=== PATIENT | male | born 2000 | race Caucasian/White ===

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

== ENCOUNTER 2022-08-06 16:12 | Emergency (ER) | payer OTHER, MEDICAID, SELFPAY ==
[2022-08-06 16:55] VITALS: BP 132/88; PULSE 54; RESP 20; TEMP 36.6; O2SAT 97; BMI 22.3
== END 2022-08-06 17:28 | disposition left against medical advice (07) ==
PROVIDERS: Emergency Provider Emergency Medicine
CPT/HCPCS: 99281

== ENCOUNTER 2023-01-31 18:44 | Emergency (ER) | payer OTHER, MEDICAID, SELFPAY ==
[2023-01-31] VITALS (8 sets, daily range): BP systolic 138–154; BP diastolic 61–86; PULSE 57–69; RESP 16; TEMP 36.7; O2SAT 92–100; BMI 22.3
[2023-01-31] MEDS: ONDANSETRON 4 MG/2 ML INJ IV (19:14)
[2023-01-31 19:20] LABS: Add Manual Diff / Slide Review NO; Basophils Absolute Auto 0 /uL (0-100); Basophils Percent Auto 0.2 % (0-2); Eosinophils Absolute Auto 0 /uL (0-450); Eosinophils Percent Auto 0.3 % (2-4); Hematocrit 45.5 % (41-53); Hemoglobin 15.6 g/dL (13.5-17.5); Lymphocytes Absolute Auto 400 /uL (1100-4500); Lymphocytes Percent Auto 3.3 % (25-40); Mean Corpuscular HGB Conc 34.4 % (30-36); Mean Corpuscular Hemoglobin 29.6 PG (26-34); Mean Corpuscular Volume 86.1 fL (80-100); Monocytes Absolute Auto 200 /uL (0-900); Neutrophils Absolute Auto 11400 /uL (1500-7000); Neutrophils Percent Auto 94.2 % (50-75); Platelet Count 295 X10^3/uL (150-400); Red Blood Cell Count 5.28 X10^6/uL (4.5-5.9); White Blood Cell Count 12.1 X10^3/uL (4.5-11.0)
[2023-01-31] MEDS: SODIUM CHLORIDE 0.9% 1,000 ML 1000 ML IV (19:22)
[2023-01-31 19:30] LABS: Albumin 5.4 g/dL (3.5-5.0); Albumin Globulin Ratio 1.4 (1.0-2.8); Alkaline Phosphatase 69 U/L (38-126); Aspartate Aminotransferase 46 IU/L (17-59); BUN Creatinine Ratio 20.5 (6-22); Blood Urea Nitrogen 16 mg/dL (9-20); Calcium 10.5 mg/dL (8.4-10.2); Carbon Dioxide 24 mmol/L (22-32); Chloride 99 mmol/L (98-107); Estimated Glomerular Filt Rate > 60 mL/min (>60); Globulin 3.8 g/dL (1.7-4.1); Glucose 163 mg/dL (70-100); HEMOLYSIS < 15 (0-50); Lipase 28 U/L (23-300); Potassium 3.5 mmol/L (3.4-5.1); Sodium 141 mmol/L (137-145); Total Protein 9.2 g/dL (6.3-8.2)
[2023-01-31 19:37] LABS: Alanine Aminotransferase 50 IU/L (<50)
--- NOTE | 2023-01-31 19:56 | ED.ABDPAIN ---
HPI - Abdominal Pain General Chief Complaint: Abdominal Pain Stated Complaint: stomach pain/V Time Seen by Provider: 01/31/23 18:56 Source: patient Mode of arrival: Ambulatory History of Present Illness HPI narrative: Patient is a healthy 22-year-old male who presents today with nausea vomiting today. He says he is woke up around 5:00 a.m. and has been vomiting multiple times throughout the day. He is got some epigastric pain other abdominal cramping but no other localized pain. No fever or chills. He denies any diarrhea. He has been given fluids and Zofran and is overall feeling much better. He was seen evaluated here previously for something similar required multiple medications. He does use marijuana regularly. Related Data Previous Rx's Medication Instructions Recorded ondansetron 4 mg disintegrating 4 mg PO Q8H PRN nausea and 01/31/23 tablet vomiting #10 tabs Allergies Allergy/AdvReac Type Severity Reaction Status Date / Time No Known Drug Allergies Allergy Verified 08/06/22 16:59 Review of Systems Review of Systems ROS Unobtainable: All systems reviewed & are unremarkable except as noted in HPI and below Patient History Medical History Acid reflux Social History Smoking Status: Current every day smoker Smoking Status: Current every day smoker tobacco type: vaping Substance Use Type: marijuana Exam Initial Vital Signs Initial Vital Signs: Vital Signs Temperature 98.0 F 01/31/23 18:50 Pulse Rate 58 L 01/31/23 18:50 Respiratory Rate 16 01/31/23 18:50 Blood Pressure 154/86 H 01/31/23 18:50 Pulse Oximetry 100 01/31/23 18:50 Oxygen Delivery Method Room Air 01/31/23 18:50 GENERAL: Thin well-appearing 22-year-old male HEENT: Head atraumatic,EOMI, pupils reactive, face symmetric, moist mucous membranes CARDIOVASCULAR: Regular rate and rhythm without murmurs, rubs or gallops. RESPIRATORY: Breath sounds equal bilaterally, no wheezes rales or rhonchi. ABDOMEN: Soft, epigastric pain negative Taylor's sign no guarding no rebound abdomen soft no lower abdominal pain EXTREMITIES: Normal range of motion, no clubbing or edema. Neurovascularly intact NEUROLOGICAL: Alert and oriented x4. SKIN: Warm, dry, no laceration, no petechiae, no rashes or lesions. Course Orders Ordered: ED Orders 01/31/23 19:10 Complete Blood Count AUTO DIFF Stat Comprehensive Metabolic Panel Stat Lipase Stat Discontinued Medications Sodium Chloride (Normal Saline 0.9%) 1,000 mls @ 1,000 mls/hr IV BOLUS ONE Stop: 01/31/23 20:17 Last Infusion: 01/31/23 20:21 Dose: 0 mls/hr Documented By: Admin: 01/31/23 19:22 Dose: 1,000 mls/hr Documented By: CATY Ketorolac Tromethamine (Ketorolac 30 Mg/Ml Vial) 15 mg IV NOW ONE Stop: 01/31/23 20:12 Last Admin: 01/31/23 20:26 Dose: 15 mg Documented By: CATY Ondansetron HCl (Ondansetron 4 Mg Odt) 4 mg PO NOW PRN PRN Reason: Nausea And Vomiting Ondansetron HCl (Ondansetron 4 Mg/2 Ml Inj) 4 mg IV NOW PRN PRN Reason: Nausea And Vomiting Last Admin: 01/31/23 19:14 Dose: 4 mg Documented By: CATY Ondansetron HCl (Ondansetron 4 Mg Odt Prepack) 1 bottle MISC SEEINSTR ONE Stop: 01/31/23 20:09 Last Admin: 01/31/23 20:27 Dose: 1 bottle Documented By: CATY Pantoprazole Sodium (Pantoprazole 40 Mg Vial) 40 mg IV NOW ONE Stop: 01/31/23 20:12 Last Admin: 01/31/23 20:26 Dose: 40 mg Documented By: CATY Vital Signs Vital signs: Vital Signs - 8 hr 01/31/23 18:50 01/31/23 18:59 01/31/23 18:59 Temperature 98.0 F Pulse Rate 58 L 57 L Respiratory Rate 16 Blood Pressure 154/86 H 154/86 H Pulse Oximetry 100 100 Oxygen Delivery Method Room Air Room Air 01/31/23 19:00 01/31/23 19:30 01/31/23 20:00 Temperature Pulse Rate 62 59 L 58 L Respiratory Rate Blood Pressure Pulse Oximetry 100 92 98 Oxygen Delivery Method Room Air Room Air 01/31/23 20:30 01/31/23 20:32 01/31/23 20:33 Temperature Pulse Rate 65 69 Respiratory Rate Blood Pressure 138/61 Pulse Oximetry 100 100 Oxygen Delivery Method Room Air MDM - Abdominal Pain Lab Data 01/31/23 19:10 01/31/23 19:10 Labs: Lab Results 01/31/23 01/31/23 Range/Units 19:10 19:10 WBC 12.1 H (4.5-11.0) X10^3/uL RBC 5.28 (4.5-5.9) X10^6/uL Hgb 15.6 (13.5-17.5) g/dL Hct 45.5 (41-53) % MCV 86.1 (80-100) fL MCH 29.6 (26-34) PG MCHC 34.4 (30-36) % RDW 13.0 (11.6-14.8) % Plt Count 295 (150-400) X10^3/uL Neut % (Auto) 94.2 H (50-75) % Lymph % (Auto) 3.3 L (25-40) % [place] % (Auto) 2.0 L (3-14) % Eos % (Auto) 0.3 L (2-4) % Baso % (Auto) 0.2 (0-2) % Neut # (Auto) 87961 H (2920-8278) /uL Lymph # (Auto) 400 L (2838-2681) /uL Spencer # (Auto) 200 (0-900) /uL Eos # (Auto) 0 (0-450) /uL Baso # (Auto) 0 (0-100) /uL Sodium 141 (137-145) mmol/L Potassium 3.5 (3.4-5.1) mmol/L Chloride 99 (98-107) mmol/L Carbon Dioxide 24 (22-32) mmol/L BUN 16 (9-20) mg/dL Creatinine 0.78 (0.66-1.25) mg/dL Estimated GFR > 60 (>60) mL/min BUN/Creatinine Ratio 20.5 (6-22) Glucose 163 H (70-100) mg/dL Calcium 10.5 H (8.4-10.2) mg/dL Total Bilirubin 1.0 (0.2-1.3) mg/dL AST 46 (17-59) IU/L ALT 50 H (<50) IU/L Alkaline Phosphatase 69 (38-126) U/L Total Protein 9.2 H (6.3-8.2) g/dL Albumin 5.4 H (3.5-5.0) g/dL Globulin 3.8 (1.7-4.1) g/dL Albumin/Globulin Ratio 1.4 (1.0-2.8) Lipase 28 (23-300) U/L MDM Narrative Medical decision making narrative: Patient is a 22-year-old healthy male who presents today with nausea vomiting ongoing for 14 hours. His vitals are stable without hypotension or tachycardia he is afebrile. Blood work has been reviewed by me has mild leukocytosis of 12.1 no evidence of electrolyte abnormality or KERRY. Overall feeling much better with fluids and Zofran. Abdomen is reexamined it is soft and nontender. At this time no indication for imaging. We discussed oral rehydration technique and when to return. He is previously been here for similar episodes however this time seems a little bit better than previous. This may or may not be related to marijuana use and cyclic vomiting. Discharge Plan Departure Patient Disposition: Home Clinical Impression: Vomiting Instructions: DI for Vomiting -- Adult Activity Restrictions/Additional Instructions: *You have been diagnosed with vomiting *What to do: Increase fluids as tolerated Pedialyte Gatorade substances encourage small amounts frequently *Continue to take medications as directed Zofran 4 mg every 8 hours if needed for nausea or vomiting--> [facility] *Follow up with your primary care provider in 2-3 days or call [phone] *Return to ER if you should have persistent vomiting increasing pain or any new, worsening or concerning symptoms Prescriptions: New ondansetron 4 mg tablet,disintegrating 4 mg PO Q8H PRN (Reason: nausea and vomiting) Qty: 10 0RF Stand Alone Forms: Patient Portal/API
[2023-01-31] MEDS: KETOROLAC 30 MG/ML VIAL 15 MG IV (20:26)
[2023-01-31] MEDS: PANTOPRAZOLE 40 MG VIAL IV (20:26)
[2023-01-31] MEDS: ONDANSETRON 4 MG ODT PREPACK 1 BOTTLE MISC (20:27)
== END 2023-01-31 20:42 | disposition home or self-care (01) ==
PROVIDERS: Emergency Provider Emergency Medicine
DX: R11.2 Nausea with vomiting, unspecified (principal); R10.9 Unspecified abdominal pain
CPT/HCPCS: 36415; 80053; 83690; 85025; 96361; 96374; 96375; 99284; C9113; J1885; J2405

== ENCOUNTER 2023-12-27 06:53 | Emergency (ER) | payer OTHER, MEDICAID, SELFPAY ==
[2023-12-27] VITALS (14 sets, daily range): BP systolic 105–157; BP diastolic 55–101; PULSE 56–82; RESP 18; TEMP 36.8; O2SAT 94–100; BMI 21.7
--- NOTE | 2023-12-27 07:27 | ED.NAVMDI ---
HPI - Nausea/Vomiting/Diarrhea General Chief complaint: Abdominal Pain Stated complaint: per pt needs fluids, stomach issues Time Seen by Provider: 12/27/23 07:04 Source: patient Mode of arrival: Ambulatory History of Present Illness HPI Narrative: 23-year-old male presents for multiple episodes of nausea, vomiting, upper abdominal pain since 5:00 p.m. yesterday. Patient states that he has a recurring ?issue? with spicy foods and ate some tacos yesterday. Since then patient states he was vomited ?a lot?. Denies known sick contacts. Related Data Previous Rx's Medication Instructions Recorded ondansetron 4 mg disintegrating 4 mg PO Q8H PRN nausea and 01/31/23 tablet vomiting #10 tabs ondansetron 4 mg disintegrating 4 mg PO Q8H PRN nausea and 12/27/23 tablet vomiting #30 tabs Allergies Allergy/AdvReac Type Severity Reaction Status Date / Time No Known Drug Allergies Allergy Verified 12/27/23 07:06 Patient History Medical History Acid reflux Social History Smoking Status: Current every day smoker Smoking Status: Current every day smoker tobacco type: vaping alcohol intake frequency: a few times a month Substance Use Type: marijuana Exam Initial Vital Signs Initial Vital Signs: Vital Signs Pulse Oximetry 99 12/27/23 07:01 Const: Awake, alert, ill-appearing, nontoxic, hunched over an emesis bag Cardiac: regular rate, regular rhythm RESP: unlabored, clear bilaterally, no wheezing GI: Soft, nontender, nondistended Skin: Warm, Dry, intact, no rashes Neuro: AO x3, CN II-XII grossly intact, moves all extremities Course Orders Ordered: ED Orders 12/27/23 07:18 Ictotest Urine Stat Urine Microscopic Stat 12/27/23 07:20 CBC Auto Diff [Complete Blood Count AUTO DIFF] Stat CMP [Comprehensive Metabolic Panel] Stat Lipase Stat Discontinued Medications Droperidol (Droperidol 5 Mg/2 Ml Vial) 2.5 mg IV NOW ONE Stop: 12/27/23 08:34 Last Admin: 12/27/23 08:41 Dose: 2.5 mg Documented By: RB Sodium Chloride (Normal Saline 0.9%) 1,000 mls @ 1,000 mls/hr IV BOLUS ONE Stop: 12/27/23 08:25 Last Infusion: 12/27/23 08:16 Dose: Infused Documented By: Admin: 12/27/23 07:35 Dose: 1,000 mls/hr Documented By: PHYLLIS Ondansetron HCl (Ondansetron 4 Mg/2 Ml Inj) 4 mg IV NOW ONE Stop: 12/27/23 07:27 Last Admin: 12/27/23 07:35 Dose: 4 mg Documented By: RB Vital Signs Vital signs: Vital Signs - 8 hr 12/27/23 07:01 12/27/23 07:02 12/27/23 07:02 Temperature Pulse Rate 56 L Respiratory Rate Blood Pressure 131/81 Pulse Oximetry 99 100 Oxygen Delivery Method 12/27/23 07:03 12/27/23 07:35 12/27/23 07:37 Temperature 98.2 F Pulse Rate 56 L 63 62 Respiratory Rate 18 Blood Pressure 131/81 Pulse Oximetry 100 100 100 Oxygen Delivery Method Room Air 12/27/23 07:37 12/27/23 07:50 12/27/23 07:52 Temperature Pulse Rate 64 56 L Respiratory Rate Blood Pressure 143/82 H Pulse Oximetry 100 100 Oxygen Delivery Method 12/27/23 07:52 12/27/23 08:00 12/27/23 08:00 Temperature Pulse Rate 56 L Respiratory Rate Blood Pressure 157/89 H 147/86 H Pulse Oximetry 99 Oxygen Delivery Method 12/27/23 08:30 12/27/23 08:31 12/27/23 08:31 Temperature Pulse Rate 57 L 60 Respiratory Rate Blood Pressure 147/96 H Pulse Oximetry 100 100 Oxygen Delivery Method 12/27/23 08:41 12/27/23 08:41 12/27/23 09:14 Temperature Pulse Rate 64 82 Respiratory Rate Blood Pressure 149/101 H Pulse Oximetry 100 96 Oxygen Delivery Method 12/27/23 09:15 12/27/23 09:15 Temperature Pulse Rate 64 Respiratory Rate Blood Pressure 105/57 L Pulse Oximetry 94 Oxygen Delivery Method MDM - Nausea/Vomiting/Diarrhea Lab Data 12/27/23 07:20 12/27/23 07:20 Labs: Lab Results 12/27/23 12/27/23 Range/Units 07:18 07:20 WBC 15.7 H (4.5-11.0) X10^3/uL RBC 5.47 (4.5-5.9) X10^6/uL Hgb 16.6 (13.5-17.5) g/dL Hct 48.0 (41-53) % MCV 87.8 (80-100) fL MCH 30.3 (26-34) PG MCHC 34.6 (30-36) % RDW 12.7 (11.6-14.8) % Plt Count 358 (150-400) X10^3/uL Neut % (Auto) 95.0 H (50-75) % Lymph % (Auto) 2.4 L (25-40) % [place] % (Auto) 1.9 L (3-14) % Eos % (Auto) 0.0 L (2-4) % Baso % (Auto) 0.7 (0-2) % Neut # (Auto) 98560 H (9053-0415) /uL Lymph # (Auto) 400 L (0320-5700) /uL [place] # (Auto) 300 (0-900) /uL Eos # (Auto) 0 (0-450) /uL Baso # (Auto) 100 (0-100) /uL Sodium 144 (137-145) mmol/L Potassium 3.6 (3.4-5.1) mmol/L Chloride 99 (98-107) mmol/L Carbon Dioxide 29 (22-32) mmol/L BUN 18 (9-20) mg/dL Creatinine 0.96 (0.66-1.25) mg/dL Estimated GFR > 60 (>60) mL/min BUN/Creatinine Ratio 18.8 (6-22) Glucose 174 H (70-100) mg/dL Calcium 10.7 H (8.4-10.2) mg/dL Total Bilirubin 0.9 (0.2-1.3) mg/dL AST 64 H (17-59) IU/L ALT 93 H (<50) IU/L Alkaline Phosphatase 73 (38-126) U/L Total Protein 9.4 H (6.3-8.2) g/dL Albumin 5.7 H (3.5-5.0) g/dL Globulin 3.7 (1.7-4.1) g/dL Albumin/Globulin Ratio 1.5 (1.0-2.8) Lipase 31 (23-300) U/L Ur Bilirubin Confirm Negative (Negative) Urine RBC 0-1/hpf (0-5/HPF) Urine WBC 1-5/hpf (0-5/HPF) Ur Squamous Epith Cells None seen (0-5/HPF) Urine Bacteria None seen (None) Hyaline Casts 1-5/lpf (None) Urine Mucus 2+ H (Negative) Ur Culture Indicated? Cult not indicated Vol Urine Centrifuged 10ml (spun) Urine Dip Bedside Urine Glucose Negative Bedside Urine Bilirubin + 1 Bedside Urine Ketone ++ 40 Urine Specific [place] 1.020 Bedside Urine Occult Blood +/- Bedside Urine pH 7.0 Bedside Urine Protein +++ 300 Bedside Urine Urobilinogen +/- 1mg Bedside Urine Nitrite - Negative Bedside Urine Leukocytes +/- 15 Esterase MDM Narrative Medical decision making narrative: 12 hours of nausea and vomiting. Abdomen soft. Labs show mild elevation of AST/ALT just outside range of normal, possibly secondary to acute GI illness, other electrolytes within normal limits. Patient received a L of IV fluids, tolerating p.o. after IV droperidol. Zofran sent to pharmacy of choice. Note for work provided per patient request. Discharge Plan Departure Patient Disposition: Home Clinical Impression: Vomiting Instructions: Nausea and Vomiting-Adult Activity Restrictions/Additional Instructions: Your laboratory work today is normal. Your electrolytes do not need replacement. Follow a light diet for the next several days at home. A short course of antinausea medications has been sent to your pharmacy. Prescriptions: New ondansetron 4 mg tablet,disintegrating 4 mg PO Q8H PRN (Reason: nausea and vomiting) Qty: 30 0RF No Action ondansetron 4 mg tablet,disintegrating 4 mg PO Q8H PRN (Reason: nausea and vomiting) Qty: 10 0RF Stand Alone Forms: Patient Portal/API, Work Release Note
[2023-12-27 07:35] LABS: Ictotest Urine Negative (Negative)
[2023-12-27 07:35] LABS: Add Manual Diff / Slide Review NO; Basophils Absolute Auto 100 /uL (0-100); Basophils Percent Auto 0.7 % (0-2); Eosinophils Absolute Auto 0 /uL (0-450); Hemoglobin 16.6 g/dL (13.5-17.5); Lymphocytes Absolute Auto 400 /uL (1100-4500); Lymphocytes Percent Auto 2.4 % (25-40); Mean Corpuscular HGB Conc 34.6 % (30-36); Mean Corpuscular Hemoglobin 30.3 PG (26-34); Mean Corpuscular Volume 87.8 fL (80-100); Monocytes Absolute Auto 300 /uL (0-900); Monocytes Percent Auto 1.9 % (3-14); Neutrophils Absolute Auto 14900 /uL (1500-7000); Platelet Count 358 X10^3/uL (150-400); Red Blood Cell Count 5.47 X10^6/uL (4.5-5.9); Red Cell Distribution Width 12.7 % (11.6-14.8); White Blood Cell Count 15.7 X10^3/uL (4.5-11.0)
[2023-12-27] MEDS: SODIUM CHLORIDE 0.9% 1,000 ML 1000 ML IV (07:35)
[2023-12-27] MEDS: ONDANSETRON 4 MG/2 ML INJ IV (07:35)
[2023-12-27 07:44] LABS: Urine Volume 10mL (spun)
[2023-12-27 07:46] LABS: Bacteria Urine None Seen; Culture Indicated Urine Cult Not Indicated; Hyaline Casts Urine 1-5/LPF; Mucus Urine 2+ (Negative); RBC Urine 0-1/HPF (0-5/HPF); Squamous Epithelial Cell Urine None Seen (0-5/HPF); WBC Urine 1-5/HPF (0-5/HPF)
[2023-12-27 07:48] LABS: Alanine Aminotransferase 93 IU/L (<50); Albumin 5.7 g/dL (3.5-5.0); Albumin Globulin Ratio 1.5 (1.0-2.8); Alkaline Phosphatase 73 U/L (38-126); Aspartate Aminotransferase 64 IU/L (17-59); BUN Creatinine Ratio 18.8 (6-22); Bilirubin Total 0.9 mg/dL (0.2-1.3); Blood Urea Nitrogen 18 mg/dL (9-20); Calcium 10.7 mg/dL (8.4-10.2); Carbon Dioxide 29 mmol/L (22-32); Chloride 99 mmol/L (98-107); Estimated Glomerular Filt Rate > 60 mL/min (>60); Globulin 3.7 g/dL (1.7-4.1); Glucose 174 mg/dL (70-100); HEMOLYSIS < 15 (0-50); Lipase 31 U/L (23-300); Potassium 3.6 mmol/L (3.4-5.1); Sodium 144 mmol/L (137-145); Total Protein 9.4 g/dL (6.3-8.2)
[2023-12-27] MEDS: DROPERIDOL 5 MG/2 ML VIAL 2.5 MG IV (08:41)
== END 2023-12-27 09:54 | disposition home or self-care (01) ==
PROVIDERS: Emergency Provider Emergency Medicine
DX: R11.2 Nausea with vomiting, unspecified (principal); R79.89 Other specified abnormal findings of blood chemistry
CPT/HCPCS: 36415; 80053; 81003; 81015; 83690; 85025; 96361; 96374; 96375; 99284; J1790; J2405

== ENCOUNTER 2024-05-27 19:38 | Emergency (ER) | payer OTHER, SELFPAY ==
[2024-05-27] VITALS (8 sets, daily range): BP systolic 113–153; BP diastolic 58–92; PULSE 81–93; RESP 14–20; TEMP 36; O2SAT 96–99; BMI 20.9
--- NOTE | 2024-05-27 20:28 | PC.NURSE ---
Pt ambulatory to restroom without difficulty or assistance.
[2024-05-27] MEDS: HALOPERIDOL 5 MG/ML VIAL 3 MG IV (20:33)
[2024-05-27 20:40] LABS: Hematocrit 54.2 % (41-53); Hemoglobin 18.8 g/dL (13.5-17.5); Mean Corpuscular HGB Conc 34.7 % (30-36); Mean Corpuscular Hemoglobin 29.5 PG (26-34); Platelet Count 438 X10^3/uL (150-400); Red Blood Cell Count 6.38 X10^6/uL (4.5-5.9); White Blood Cell Count 25.6 X10^3/uL (4.5-11.0)
[2024-05-27 20:44] LABS: Add Manual Diff / Slide Review YES
[2024-05-27 20:50] LABS: Alanine Aminotransferase 49 IU/L (<50); Albumin 5.9 g/dL (3.5-5.0); Albumin Globulin Ratio 1.2 (1.0-2.8); Alkaline Phosphatase 78 U/L (38-126); Aspartate Aminotransferase 62 IU/L (17-59); BUN Creatinine Ratio 18.4 (6-22); Bilirubin Total 1.3 mg/dL (0.2-1.3); Blood Urea Nitrogen 76 mg/dL (9-20); Calcium 9.1 mg/dL (8.4-10.2); Estimated Glomerular Filt Rate 20 mL/min (>60); Globulin 5.1 g/dL (1.7-4.1); Glucose 123 mg/dL (70-100); Potassium 3.3 mmol/L (3.4-5.1); Sodium 129 mmol/L (137-145)
[2024-05-27] MEDS: SODIUM CHLORIDE 0.9% 1,000 ML 1000 ML IV ×2 (20:51→21:29)
--- NOTE | 2024-05-27 20:51 | ED.NAVMDI ---
HPI - Nausea/Vomiting/Diarrhea General Chief complaint: Nausea/Vomiting/Diarrhea Stated complaint: N/V/D, poss seizure Time Seen by Provider: 05/27/24 19:45 Source: patient Mode of arrival: Ambulatory History of Present Illness HPI Narrative: 23-year-old male presents with 2 days of nausea, vomiting, midepigastric abdominal pain. Patient states that in the car on the way to the ER he had an episode where his muscles locked up and he could not move. Has been seen several times in the ED for nausea and vomiting. Has not followed with PCP. Related Data Previous Rx's Medication Instructions Recorded ondansetron 4 mg disintegrating 4 mg PO Q8H PRN nausea and 01/31/23 tablet vomiting #10 tabs ondansetron 4 mg disintegrating 4 mg PO Q8H PRN nausea and 12/27/23 tablet vomiting #30 tabs ondansetron 4 mg disintegrating 4 mg PO Q8H PRN nausea and 05/27/24 tablet vomiting #30 tabs Allergies Allergy/AdvReac Type Severity Reaction Status Date / Time No Known Drug Allergies Allergy Verified 12/27/23 07:06 Patient History Medical History Acid reflux Social History Smoking Status: Current every day smoker Smoking Status: Current every day smoker tobacco type: vaping alcohol intake frequency: a few times a month Exam Initial Vital Signs Initial Vital Signs: Vital Signs Temperature 96.8 F L 05/27/24 19:42 Pulse Rate 93 H 05/27/24 19:42 Respiratory Rate 16 05/27/24 19:42 Blood Pressure 132/92 H 05/27/24 19:42 Pulse Oximetry 97 05/27/24 19:42 Oxygen Delivery Method Room Air 05/27/24 19:42 Const: Awake, alert, ill appearing, nontoxic Cardiac: regular rate, regular rhythm RESP: unlabored, clear bilaterally, no wheezing GI: Soft, tenderness to deep palpation w/o rebound or guarding, nondistended Skin: Warm, Dry, intact, no rashes Neuro: AO x3, CN II-XII grossly intact, moves all extremities Course Orders Ordered: ED Orders 05/27/24 20:28 Urine Microscopic Stat 05/27/24 20:30 CBC Auto Diff [Complete Blood Count AUTO DIFF] Stat CMP [Comprehensive Metabolic Panel] Stat 05/27/24 22:08 BMP [Basic Metabolic Panel] Stat Discontinued Medications Haloperidol (Haloperidol 5 Mg/Ml Vial) 3 mg IV NOW ONE Stop: 05/27/24 20:22 Last Admin: 05/27/24 20:33 Dose: 3 mg Documented By: FLORA Sodium Chloride (Normal Saline 0.9%) 1,000 mls @ 1,000 mls/hr IV BOLUS ONE Stop: 05/27/24 21:44 Last Infusion: 05/27/24 21:36 Dose: Infused Documented By: Admin: 05/27/24 20:51 Dose: 1,000 mls/hr Documented By: FLORA Sodium Chloride (Normal Saline 0.9%) 1,000 mls @ 1,000 mls/hr IV BOLUS ONE Stop: 05/27/24 22:27 Last Infusion: 05/27/24 22:28 Dose: Infused Documented By: Admin: 05/27/24 21:29 Dose: 1,000 mls/hr Documented By: FLORA POTASSIUM CHLORIDE IN WATER (Potassium Cl 10 Meq/100 Ml [place]) 10 meq in 100 mls @ 100 mls/hr IV Q1H LULU Stop: 05/28/24 02:44 Ondansetron HCl (Ondansetron 4 Mg Odt Prepack) 1 bottle MISC DIRECTED ONE Stop: 05/27/24 22:51 Last Admin: 05/27/24 22:55 Dose: 1 bottle Documented By: Potassium Chloride (Potassium Chloride 20 Meq Tab) 40 meq PO NOW ONE Stop: 05/27/24 22:43 Last Admin: 05/27/24 22:50 Dose: 40 meq Documented By: Vital Signs Vital signs: Vital Signs - 8 hr 05/27/24 20:36 05/27/24 20:37 05/27/24 20:37 Pulse Rate 81 86 Respiratory Rate 20 Blood Pressure 141/86 H Pulse Oximetry 98 99 Oxygen Delivery Method Room Air 05/27/24 21:00 05/27/24 21:00 05/27/24 21:30 Pulse Rate 92 H 82 Respiratory Rate 14 Blood Pressure 127/60 Pulse Oximetry 96 96 Oxygen Delivery Method Room Air 05/27/24 21:30 05/27/24 22:00 05/27/24 22:00 Pulse Rate 85 Respiratory Rate Blood Pressure 113/58 L 117/70 Pulse Oximetry 97 Oxygen Delivery Method 05/27/24 22:52 05/27/24 22:53 05/27/24 22:53 Pulse Rate 86 Respiratory Rate Blood Pressure 153/80 H Pulse Oximetry 97 98 Oxygen Delivery Method MDM - Nausea/Vomiting/Diarrhea Differential Diagnosis Differential diagnosis: Likely traveler's diarrhea, food poisoning, gastroenteritis and dehydration Lab Data 05/27/24 20:30 05/27/24 22:08 Labs: Lab Results 05/27/24 05/27/24 05/27/24 Range/Units 20:28 20:30 22:08 WBC 25.6 H (4.5-11.0) X10^3/uL RBC 6.38 H (4.5-5.9) X10^6/uL Hgb 18.8 H (13.5-17.5) g/dL Hct 54.2 H (41-53) % MCV 85.0 (80-100) fL MCH 29.5 (26-34) PG MCHC 34.7 (30-36) % RDW 13.0 (11.6-14.8) % Plt Count 438 H (150-400) X10^3/uL Neut % (Auto) Not Reportable Lymph % (Auto) Not Reportable [place] % (Auto) Not Reportable Eos % (Auto) Not Reportable Baso % (Auto) Not Reportable Lymph # (Auto) Not Reportable [place] # (Auto) Not Reportable Baso # (Auto) Not Reportable Total Counted 100 Seg Neutrophils % 80.0 H (38-70) % Lymphocytes % (Manual) 8.0 L (25-45) % Monocytes % (Manual) 12.0 H (2-11) % Neutrophils # (Manual) 22784 H (8949-9991) /uL Nucleated RBCs 1 H ( - 0) #/Diff RBC Morphology Normal morphology Sodium 129 L 129 L (137-145) mmol/L Potassium 3.3 L 2.6 L* (3.4-5.1) mmol/L Chloride 68 L* 77 L (98-107) mmol/L Carbon Dioxide 38 H 37 H (22-32) mmol/L BUN 76 H 70 H (9-20) mg/dL Creatinine 4.14 H 3.49 H (0.66-1.25) mg/dL Estimated GFR 20 L 25 L (>60) mL/min BUN/Creatinine Ratio 18.4 20.1 (6-22) Glucose 123 H 115 H (70-100) mg/dL Calcium 9.1 7.4 L (8.4-10.2) mg/dL Total Bilirubin 1.3 (0.2-1.3) mg/dL AST 62 H (17-59) IU/L ALT 49 (<50) IU/L Alkaline Phosphatase 78 (38-126) U/L Total Protein 11.0 H (6.3-8.2) g/dL Albumin 5.9 H (3.5-5.0) g/dL Globulin 5.1 H (1.7-4.1) g/dL Albumin/Globulin Ratio 1.2 (1.0-2.8) Urine RBC 0-1/hpf (0-5/HPF) Urine WBC 0-1/hpf (0-5/HPF) Ur Squamous Epith Cells 1-5 /hpf (0-5/HPF) Other Crystals Other crystals: Urine Bacteria Occasional (0-1) (None) Hyaline Casts 5-10/lpf (None) Ur Culture Indicated? Cult not indicated Vol Urine Centrifuged 10ml (spun) Urine Dip Bedside Urine Glucose Negative Bedside Urine Bilirubin - Negative Bedside Urine Ketone - Negative Urine Specific [place] 1.030 Bedside Urine Occult Blood + Bedside Urine pH 5.5 Bedside Urine Protein ++ 100 Bedside Urine Urobilinogen - Negative Bedside Urine Nitrite - Negative Bedside Urine Leukocytes - Negative Esterase MDM Narrative Medical decision making narrative: Two days of nausea and vomiting. Abdomen soft, no peritoneal signs. Seen multiple times for same, possibly related to marijuana use. Laboratory work ordered. Laboratory work with multiple derangements. WBC count 25.6, hemoglobin 18.8, platelet count 438, sodium 129, potassium 3.3, chloride 68, creatinine 4.14. Patient given 2L IV fluids and haldol for vomiting. Will recheck BMP after 2nd liter of fluids, likely will need admit. Repeat BMP after fluids shows sodium so 129, potassium now 2.6, creatinine improved to 3.49. Patient improving with fluids but still with low GFR and electrolyte abnormalities. Patient reassessed, states that his nausea and pain are improved and he would like to go home. I counseled the patient that with his kidney function and electrolyte abnormalities he would benefit from hospitalization and further monitoring. patient again declined stating he just wanted to go home. Patient advised that he was at high risk of permanent kidney injury if he leaves the hospital. patient stated that he understood and still would like to go home. Friend/roommate at bedside stated that they would watch the patient at home and make sure he hydrates. Patient given po potassium and strict ED return precautions prior to discharge. Zofran sent to pharmacy of choice. Discharge Plan Departure Patient Disposition: Left Against Medical Advice Clinical Impression: KERRY (acute kidney injury), Dehydration, Hypokalemia, Left against medical advice, Nausea & vomiting Instructions: DI for Dehydration -- Adult Activity Restrictions/Additional Instructions: Your labs today showed significant dehydration. I recommended admission, but you are electing to leave the hospital. You are at significant risk of damaging your kidneys, and permanent failure would mean dialysis. Please follow up as soon as possible with a primary care doctor to make sure that your kidneys improve. Avoid ibuprofen and aspirin. Drink lots of hydrating fluids to help your kidneys recover. Prescriptions: New ondansetron 4 mg tablet,disintegrating 4 mg PO Q8H PRN (Reason: nausea and vomiting) Qty: 30 0RF No Action ondansetron 4 mg tablet,disintegrating 4 mg PO Q8H PRN (Reason: nausea and vomiting) Qty: 10 0RF ondansetron 4 mg tablet,disintegrating 4 mg PO Q8H PRN (Reason: nausea and vomiting) Qty: 30 0RF Stand Alone Forms: Patient Portal/API, Against Medical Advice, Patient Portal/API/Survey
[2024-05-27 20:57] LABS: Carbon Dioxide 38 mmol/L (22-32); HEMOLYSIS 35 (0-50)
[2024-05-27 21:00] LABS: Bacteria Urine Occasional (0-1); RBC Urine 0-1/HPF (0-5/HPF); Squamous Epithelial Cell Urine 1-5 /HPF (0-5/HPF); Urine Volume 10mL (spun); WBC Urine 0-1/HPF (0-5/HPF)
[2024-05-27 21:01] LABS: Culture Indicated Urine Cult Not Indicated; Hyaline Casts Urine 5-10/LPF; Other Crystals Urine Other Crystals:
[2024-05-27 21:06] LABS: Neutrophils Absolute Manual 20480 /uL (3000-5900); Nucleated Red Blood Cells 1 #/Diff; RBC Morphology Normal Morphology; Total Cells Counted 100
[2024-05-27 21:09] LABS: Chloride 68 mmol/L (98-107)
--- NOTE | 2024-05-27 21:34 | PC.NURSE ---
Pt resting quietly with eyes closed, resps even and not labored. No distress noted at this time. Pt remains connected to cardiac, resp, pulse ox, and blood pressure monitors with alarms on and audible. Call light within reach.
[2024-05-27 22:24] LABS: BUN Creatinine Ratio 20.1 (6-22); Blood Urea Nitrogen 70 mg/dL (9-20); Calcium 7.4 mg/dL (8.4-10.2); Chloride 77 mmol/L (98-107); Estimated Glomerular Filt Rate 25 mL/min (>60); Glucose 115 mg/dL (70-100); HEMOLYSIS < 15 (0-50); Sodium 129 mmol/L (137-145)
[2024-05-27 22:31] LABS: Carbon Dioxide 37 mmol/L (22-32)
[2024-05-27 22:42] LABS: Potassium 2.6 mmol/L (3.4-5.1)
[2024-05-27] MEDS: POTASSIUM CHLORIDE 20 MEQ TAB 40 MEQ PO (22:50)
[2024-05-27] MEDS: ONDANSETRON 4 MG ODT PREPACK 1 BOTTLE MISC (22:55)
== END 2024-05-27 23:01 | disposition left against medical advice (07) ==
PROVIDERS: Emergency Provider Emergency Medicine
DX: N17.9 Acute kidney failure, unspecified (principal); E86.0 Dehydration; E87.6 Hypokalemia; R11.2 Nausea with vomiting, unspecified; Z53.29 Procedure and treatment not carried out because of patient's decision for other reasons
CPT/HCPCS: 36415; 80048; 80053; 81003; 81015; 85007; 85025; 96361; 96374; 99284; J1630

== ENCOUNTER 2024-08-22 12:56 | Observation (INO) | payer OTHER, SELFPAY ==
[2024-08-22] VITALS (19 sets, daily range): BP systolic 115–135; BP diastolic 60–84; PULSE 55–95; RESP 16–18; TEMP 37–37.1; O2SAT 90–100; BMI 22.3; BMI 21.5
[2024-08-22 13:40] LABS: Add Manual Diff / Slide Review NO; Basophils Absolute Auto 0 /uL (0-100); Basophils Percent Auto 0.3 % (0-2); Eosinophils Absolute Auto 0 /uL (0-450); Eosinophils Percent Auto 0.1 % (2-4); Hemoglobin 15.4 g/dL (13.5-17.5); Lymphocytes Absolute Auto 800 /uL (1100-4500); Lymphocytes Percent Auto 8.1 % (25-40); Mean Corpuscular HGB Conc 34.9 % (30-36); Mean Corpuscular Hemoglobin 29.5 PG (26-34); Mean Corpuscular Volume 84.5 fL (80-100); Monocytes Absolute Auto 800 /uL (0-900); Monocytes Percent Auto 8.4 % (3-14); Neutrophils Absolute Auto 8000 /uL (1500-7000); Neutrophils Percent Auto 83.1 % (50-75); Platelet Count 396 X10^3/uL (150-400); Red Blood Cell Count 5.21 X10^6/uL (4.5-5.9); Red Cell Distribution Width 12.6 % (11.6-14.8); White Blood Cell Count 9.6 X10^3/uL (4.5-11.0)
[2024-08-22] MEDS: ONDANSETRON 4 MG/2 ML INJ IV ×2 (13:48→18:39)
[2024-08-22] MEDS: SODIUM CHLORIDE 0.9% 1,000 ML 1000 ML IV ×3 (13:49→19:56)
[2024-08-22 13:51] LABS: Alanine Aminotransferase 47 IU/L (<50); Albumin 5.9 g/dL (3.5-5.0); Albumin Globulin Ratio 1.2 (1.0-2.8); Alkaline Phosphatase 73 U/L (38-126); Aspartate Aminotransferase 50 IU/L (17-59); BUN Creatinine Ratio 20.5 (6-22); Bilirubin Total 1.5 mg/dL (0.2-1.3); Blood Urea Nitrogen 39 mg/dL (9-20); Calcium 10.5 mg/dL (8.4-10.2); Carbon Dioxide 32 mmol/L (22-32); Chloride 87 mmol/L (98-107); Estimated Glomerular Filt Rate 51 mL/min (>60); Globulin 4.9 g/dL (1.7-4.1); Glucose 148 mg/dL (70-100); HEMOLYSIS < 15 (0-50); Lipase 41 U/L (23-300); Potassium 3.2 mmol/L (3.4-5.1); Sodium 138 mmol/L (137-145); Total Protein 10.8 g/dL (6.3-8.2)
--- NOTE | 2024-08-22 16:28 | DI.CT.S_ITS ---
PROCEDURE: CT ABDOMEN PELVIS W CON INDICATIONS: abd pain, N/V TECHNIQUE: After the administration of intravenous contrast, axial sections acquired from the lung bases to the pubic symphysis. Coronal and sagittal reformats were performed. For radiation dose reduction, the following was used: automated exposure control, adjustment of mA and/or kV according to patient size. COMPARISON: None. FINDINGS: Image quality: Diagnostic. Lower Chest: No significant findings. ABDOMEN: Liver: No solid mass. Gallbladder: No radiopaque gallstones or wall thickening. Biliary ducts: No biliary dilation. Pancreas: No ductal dilation. Spleen: Size is within normal limits. Adrenal Glands: No adrenal nodules. Kidneys and Ureters: No hydronephrosis. No solid mass. No complex renal cystic lesion which requires follow up. Stomach and Bowel: Normal colonic caliber, without significant wall thickening. Probable partial visualization of a gas-filled normal appendix. Peritoneum: No abnormal intraperitoneal fluid. No free air. Ventral Wall: No significant ventral hernia. Abdominal Nodes: No retroperitoneal or mesenteric adenopathy by size criteria. Vessels: Aorta and inferior vena cava are normal in size. PELVIS: Pelvic Organs: Unremarkable. Bladder: No bladder wall thickening, accounting for underdistention. Pelvic Nodes: No enlarged lymph nodes. Miscellaneous: No inguinal hernias are seen. Bones: No aggressive osseous abnormality. IMPRESSION: No acute abdominal process noted. Dictated by: Lorne Jimenez M.D. on 08/22/2024 at 16:51 Approved by: Lorne Jimenez M.D. on 08/22/2024 at 16:53
--- NOTE | 2024-08-22 17:08 | ED_ITS ---
HPI - Abdominal Pain General Chief Complaint: Abdominal Pain Stated Complaint: Throwing up Time Seen by Provider: 08/22/24 16:28 Source: patient Mode of arrival: Family Vehicle History of Present Illness HPI narrative: 23-year-old male complains of intermittent epigastric pain for months, more severe the last few days, has been taking Pepto-Bismol. No other antacids tried. He has had occasional nausea, has been using previous supply of ondansetron to control nausea and vomiting. Denies drug alcohol use. Denies history of diabetes. Denies history of cyclic vomiting syndrome. Has never had previous upper endoscopy. No black or red stools. No weight loss. No history of known cancers. No injury trauma new activities. Patient admits to May nausea and vomiting episode when he had severe KERRY in the setting of vomiting, left against medical advice after admission advised, subsequently per mother's report patient presented UTI, emergency department, too long to wait, went to [facility] emergency department and was admitted there for further treatment eventually discharge. Related Data Previous Rx's Medication Instructions Recorded ondansetron 4 mg disintegrating 4 mg PO Q8H PRN nausea and 01/31/23 tablet vomiting #10 tabs ondansetron 4 mg disintegrating 4 mg PO Q8H PRN nausea and 12/27/23 tablet vomiting #30 tabs ondansetron 4 mg disintegrating 4 mg PO Q8H PRN nausea and 05/27/24 tablet vomiting #30 tabs Allergies Allergy/AdvReac Type Severity Reaction Status Date / Time No Known Drug Allergies Allergy Verified 08/22/24 13:13 Patient History Medical History Acid reflux Social History Smoking Status: Current every day smoker Smoking Status: Current every day smoker tobacco type: vaping alcohol intake frequency: a few times a month Exam Narrative Exam Narrative: GENERAL: Well-developed patient, in mild distress. HEAD: Atraumatic. Normocephalic. EYES: Pupils equal round and reactive. Extraocular motions intact. No scleral icterus. No injection or drainage. ENT: Nose without bleeding, purulent drainage. Throat without erythema, tonsillar hypertrophy or exudate. Airway patent. NECK: Trachea midline. Non tender CARDIOVASCULAR: Regular rate and rhythm without murmurs, gallops, or rubs. RESPIRATORY: Clear to auscultation. Breath sounds equal bilaterally. No wheezes, rales, or rhonchi. GASTROINTESTINAL: Abdomen soft, non-tender, nondistended. EXTREMITIES: No edema or joint tenderness. BACK: Nontender without deformity or crepitance. No flank tenderness. NEURO: AOx3. Motor functions grossly nonfocal SKIN: No rash or erythema of visible areas Initial Vital Signs Initial Vital Signs: Vital Signs Temperature 98.6 F 08/22/24 13:09 Pulse Rate 84 08/22/24 13:09 Respiratory Rate 17 08/22/24 13:09 Blood Pressure 126/61 08/22/24 13:09 Pulse Oximetry 96 08/22/24 13:09 Oxygen Delivery Method Room Air 08/22/24 13:09 Course Orders Ordered: ED Orders 08/22/24 13:27 Complete Blood Count AUTO DIFF Stat Comprehensive Metabolic Panel Stat Lipase Stat 08/22/24 16:28 CT abdomen pelvis w con Stat 08/22/24 18:05 Urine Drug Screen, Rapid Stat Hydromorphone HCl (Hydromorphone 0.5 Mg Inj) 0.5 mg IV Q2H PRN PRN Reason: Pain, Severe (7-10) POTASSIUM CHLORIDE IN WATER (Potassium Cl 10 Meq/100 Ml Rafaela) 10 meq in 100 mls @ 100 mls/hr IV Q1H LULU Stop: 08/22/24 20:44 Last Admin: 08/22/24 20:04 Dose: 100 mls/hr Documented By: Infusion: 08/22/24 20:03 Dose: Infused Documented By: Admin: 08/22/24 18:59 Dose: 100 mls/hr Documented By: TC Potassium Chloride/Sodium Chloride (Ns With Kcl 20 Meq) 1,000 mls @ 125 mls/hr IV CONT LULU Lorazepam (Lorazepam 2 Mg/Ml Inj) 1 mg IV Q4HR PRN PRN Reason: Vomiting Last Admin: 08/22/24 19:40 Dose: 1 mg Documented By: TC Naloxone HCl (Naloxone 0.4 Mg/Ml Vial) 0.2 mg IV Q2MIN PRN PRN Reason: Opiate Reversal Ondansetron HCl (Ondansetron 4 Mg/2 Ml Inj) 4 mg IV NOW PRN PRN Reason: Nausea And Vomiting Last Admin: 08/22/24 13:48 Dose: 4 mg Documented By: MERCEDES Ondansetron HCl (Ondansetron 4 Mg Odt) 4 mg PO NOW PRN PRN Reason: Nausea And Vomiting Ondansetron HCl (Ondansetron 4 Mg/2 Ml Inj) 4 mg IV Q8HR PRN PRN Reason: Nausea And Vomiting Promethazine HCl (Promethazine 12.5 Mg Supp) 12.5 mg SD Q6HR PRN PRN Reason: Nausea And Vomiting Promethazine HCl (Promethazine 25 Mg Tablet) 25 mg PO Q4HR PRN PRN Reason: Nausea Last Admin: 08/22/24 19:40 Dose: 25 mg Documented By: SUNIL Discontinued Medications Sodium Chloride (Normal Saline 0.9%) 1,000 mls @ 1,000 mls/hr IV BOLUS ONE Stop: 08/22/24 14:42 Last Infusion: 08/22/24 14:35 Dose: Infused Documented By: Admin: 08/22/24 13:49 Dose: 1,000 mls/hr Documented By: MERCEDES Sodium Chloride (Normal Saline 0.9%) 1,000 mls @ 1,000 mls/hr IV BOLUS ONE Stop: 08/22/24 19:28 Last Infusion: 08/22/24 19:39 Dose: Infused Documented By: Admin: 08/22/24 18:34 Dose: 1,000 mls/hr Documented By: SUNIL Sodium Chloride (Normal Saline 0.9%) 1,000 mls @ 1,000 mls/hr IV BOLUS ONE Stop: 08/22/24 20:08 Last Admin: 08/22/24 19:56 Dose: 1,000 mls/hr Documented By: SUNIL Ondansetron HCl (Ondansetron 4 Mg/2 Ml Inj) 4 mg IV NOW ONE Stop: 08/22/24 18:35 Last Admin: 08/22/24 18:39 Dose: 4 mg Documented By: SUNIL Pantoprazole Sodium (Pantoprazole 40 Mg Vial) 40 mg IV NOW ONE Stop: 08/22/24 18:24 Last Admin: 08/22/24 18:27 Dose: 40 mg Documented By: SUNIL Vital Signs Vital signs: Vital Signs - 8 hr 08/22/24 13:09 08/22/24 14:09 08/22/24 14:09 Temperature 98.6 F Pulse Rate 84 76 Respiratory Rate 17 Blood Pressure 126/61 127/84 Pulse Oximetry 96 100 Oxygen Delivery Method Room Air 08/22/24 14:30 08/22/24 14:30 08/22/24 15:00 Temperature Pulse Rate 62 62 Respiratory Rate Blood Pressure 124/68 Pulse Oximetry 100 99 Oxygen Delivery Method 08/22/24 15:00 08/22/24 15:30 08/22/24 15:30 Temperature Pulse Rate 62 Respiratory Rate Blood Pressure 115/64 115/60 Pulse Oximetry 98 Oxygen Delivery Method 08/22/24 16:00 08/22/24 16:00 08/22/24 16:30 Temperature Pulse Rate 60 60 Respiratory Rate Blood Pressure 117/64 Pulse Oximetry 99 99 Oxygen Delivery Method 08/22/24 16:30 08/22/24 17:26 08/22/24 17:27 Temperature Pulse Rate 81 Respiratory Rate Blood Pressure 115/64 130/76 Pulse Oximetry 98 Oxygen Delivery Method 08/22/24 17:27 08/22/24 17:30 08/22/24 17:30 Temperature Pulse Rate 63 55 L Respiratory Rate Blood Pressure 128/73 Pulse Oximetry 98 98 Oxygen Delivery Method 08/22/24 18:00 08/22/24 18:00 08/22/24 18:09 Temperature Pulse Rate 95 H 72 Respiratory Rate Blood Pressure 135/61 Pulse Oximetry 98 96 Oxygen Delivery Method 08/22/24 18:09 08/22/24 18:30 Temperature Pulse Rate 71 Respiratory Rate Blood Pressure 134/74 Pulse Oximetry 100 Oxygen Delivery Method MDM - Abdominal Pain Lab Data Attestation: I reviewed the patient's lab results. Lab results narrative: White blood cell count 9600, hemoglobin 15.4, platelets adequate. Sodium 138, glucose 148, potassium 3.2 low, serum CO2 32, BUN 39 with creatinine 1.90 both elevated. Total bilirubin 1.5, other liver functions unremarkable. UDS positive for cocaine and for marijuana, otherwise negative. Urine dip positive for ketones otherwise negative. 08/22/24 13:27 08/22/24 13:27 Labs: Lab Results 08/22/24 08/22/24 Range/Units 13:27 18:05 WBC 9.6 (4.5-11.0) X10^3/uL RBC 5.21 (4.5-5.9) X10^6/uL Hgb 15.4 (13.5-17.5) g/dL Hct 44.0 (41-53) % MCV 84.5 (80-100) fL MCH 29.5 (26-34) PG MCHC 34.9 (30-36) % RDW 12.6 (11.6-14.8) % Plt Count 396 (150-400) X10^3/uL Neut % (Auto) 83.1 H (50-75) % Lymph % (Auto) 8.1 L (25-40) % [place] % (Auto) 8.4 (3-14) % Eos % (Auto) 0.1 L (2-4) % Baso % (Auto) 0.3 (0-2) % Neut # (Auto) 8000 H (8351-2102) /uL Lymph # (Auto) 800 L (5449-2560) /uL [place] # (Auto) 800 (0-900) /uL Eos # (Auto) 0 (0-450) /uL Baso # (Auto) 0 (0-100) /uL Sodium 138 (137-145) mmol/L Potassium 3.2 L (3.4-5.1) mmol/L Chloride 87 L (98-107) mmol/L Carbon Dioxide 32 (22-32) mmol/L BUN 39 H (9-20) mg/dL Creatinine 1.90 H (0.66-1.25) mg/dL Estimated GFR 51 L (>60) mL/min BUN/Creatinine Ratio 20.5 (6-22) Glucose 148 H (70-100) mg/dL Calcium 10.5 H (8.4-10.2) mg/dL Total Bilirubin 1.5 H (0.2-1.3) mg/dL AST 50 (17-59) IU/L ALT 47 (<50) IU/L Alkaline Phosphatase 73 (38-126) U/L Total Protein 10.8 H (6.3-8.2) g/dL Albumin 5.9 H (3.5-5.0) g/dL Globulin 4.9 H (1.7-4.1) g/dL Albumin/Globulin Ratio 1.2 (1.0-2.8) Lipase 41 (23-300) U/L U Opiates 300ng/mL cut Negative (Negative) Ur Oxycodone Screen Negative (Negative) Urine Methadone Screen Negative (Negative) Ur Barbiturates Screen Negative (Negative) U Tricyclic Antidepress Negative (Negative) Ur Phencyclidine Scrn Negative (Negative) Ur Amphetamines Screen Negative (Negative) U Methamphetamines Scrn Negative (Negative) Ur MDMA Scrn (Ecstasy) Negative (Negative) U Benzodiazepines Scrn Negative (Negative) Urine Cocaine Screen Positive H (Negative) U Marijuana (THC) Screen Positive H (Negative) Urine pH Normal (Normal) Urine Specific [place] Normal (Normal) Ur Creatinine Normal (Normal) Point of care testing: Urine Dip Bedside Urine Glucose Negative Bedside Urine Bilirubin - Negative Bedside Urine Ketone ++ 40 Urine Specific [place] 1.025 Bedside Urine Occult Blood +/- Bedside Urine pH 5.5 Bedside Urine Protein + 30 Bedside Urine Urobilinogen - Negative Bedside Urine Nitrite - Negative Bedside Urine Leukocytes - Negative Esterase MDM Narrative Medical decision making narrative: 23-year-old male with recurrent nausea and vomiting nonbloody, history of similar presentation May 2024 when he left against medical advice after admission advised, at that time had KERRY with creatinine 4 range noted, that improved with IV fluids, but declined further admission, was eventually treated shortly thereafter inpatient at [facility] and discharge. Now having multiple episodes of nausea and vomiting. Denies drug or alcohol use. No prior endoscopy. Afebrile, sirs screen negative. IV fluid, IV Zofran. Labs pending. White blood cell count normal. BUN creatinine elevated, not as bad as on 05/27/2024 when he was advised to be admitted but left against medical advice with similar context, vomiting and KERRY. Total bilirubin mild elevation with other liver functions normal. Potassium 3.2 low before IV fluid bolus, IV potassium initiated. We will add IV Protonix. We will need further repletion of potassium, further IV fluid hydration and hopeful improvement of his renal function, and control of nausea and vomiting. Consider admission. We will contact hospitalist. Case discussed with hospitalist Dr. Silverman who accepts patient for admission to inpatient. Critical Care Time Critical Care Time Critical Care Time: Yes Total Critical Care Time: 35 Attestation: The high probability of a clinically significant, sudden or life threatening deterioration of the [gastrointestinal, renal, metabolic] system(s) required my full and direct attention, intervention and personal management. The aggregate critical care time was [35] minutes. This time is in addition to time spent performing reported procedures but includes the following: [x] Data Review and interpretation [x] Patient assessment and monitoring of vital signs [x] Documentation [x] Medication orders and management Discharge Plan Departure Patient Disposition: Admitted As Inpatient Clinical Impression: Nausea and vomiting, Dehydration, Acute kidney injury, Hypokalemia Admit Date/Time: 08/22/24 18:33 Admit Provider: Ricco Silverman
--- NOTE | 2024-08-22 17:28 | PC.NURSE ---
Pt drank po fluids and has kept them down. No Nausea vomiting. Patient is very sleepy. cannot stay awake when talking to RN.
[2024-08-22] MEDS: PANTOPRAZOLE 40 MG VIAL IV (18:27)
[2024-08-22 18:28] LABS: UR Morphine/Opiate cutoff 300 Negative (Negative); Ur Creatinine Normal (Normal); Ur Specific Gravity Normal (Normal); Urine Amphetamines Negative (Negative); Urine Barbiturates Negative (Negative); Urine Benzodiazepines Negative (Negative); Urine Cocaine Positive (Negative); Urine MDMA Negative (Negative); Urine Methadone Negative (Negative); Urine Methamphetamines Negative (Negative); Urine Oxycodone Negative (Negative); Urine Phencyclidine Negative (Negative); Urine Tetrahydrocannabinol Positive (Negative); Urine Tricyclic Antidepressant Negative (Negative); Urine pH Normal (Normal)
[2024-08-22] MEDS: POTASSIUM CHLORIDE IN WATER 10 MEQ/100 ML PIGGYBACK 100 MEQ IV ×2 (18:59→20:04)
--- NOTE | 2024-08-22 19:10 | P.HP_ITS ---
History of Present Illness History of Present Illness Date Patient Seen: 08/22/24 Time Patient Seen: 19:10 Date of Onset of Symptoms: 08/21/24 Chief complaint: Hyperemesis dehydration KERRY Narrative: Chief complaint: Intractable nausea vomiting with acute kidney injury secondary to dehydration prerenal azotemia potentially ATN History of present illness: 23-year-old male with a history of hyperemesis with cannabis use was using cannabis and cocaine and developed uncontrollable retching unfortunately was unable to get this to stop came to the emergency room for evaluation. Ant[facility] Refinisher reports that ?antipsychotics work best for his nausea and vomiting? the patient himself is retching too much to answer questions Patient has had similar experiences in the past with severe KERRY and with elevation of creatinine above 4 from severe episodes In the emergency room this time urine drug screen is positive for cocaine and marijuana sodium 138 potassium 3.2 chloride 87 BUN 39 creatinine 1.[address] abdomen pelvis is unremarkable Patient was referred for admission for hyperemesis and acute kidney injury Review of systems: Unable to participate in review of systems Physical exam: Young male retching and dry heaving in the emergency department in obvious distress alert able to answer simple questions in between emesis new line HEENT unremarkable new line neck no JVD Heart and lungs clear abdomen nontender extremities no edema Moves all extremities Objective: Laboratory and imaging at the bottom of the page Assessment and plan: Acute kidney injury secondary to volume depletion from intractable retching nausea and vomiting following cannabis and cocaine use which has happened in this patient before. -vigorous IV hydration and repletion of electrolytes potassium -antiemetic with Zofran Phenergan and if needed lorazepam IV Code status: Full code I spent 55 minutes 50% of the time in presence of the patient doing evaluation researching reading previous records reviewing images and studies as well as lab test results [facility] Medical History Acid reflux Social History Smoking Status: Current every day smoker Meds Home Medications and Allergies Home Medications Medication Instructions Recorded Confirmed Type ondansetron 4 mg disintegrating 4 mg PO Q8H PRN nausea and 01/31/23 Rx tablet vomiting #10 tabs ondansetron 4 mg disintegrating 4 mg PO Q8H PRN nausea and 12/27/23 Rx tablet vomiting #30 tabs ondansetron 4 mg disintegrating 4 mg PO Q8H PRN nausea and 05/27/24 Rx tablet vomiting #30 tabs Allergies Allergy/AdvReac Type Severity Reaction Status Date / Time No Known Drug Allergies Allergy Verified 08/22/24 13:13 Exam Vital Signs (past 8 hours): - 08/22/24 13:09 08/22/24 14:09 08/22/24 14:09 Temperature 98.6 F Pulse Rate 84 76 Respiratory Rate 17 Blood Pressure 126/61 127/84 Pulse Oximetry 96 100 Oxygen Delivery Method Room Air 08/22/24 14:30 08/22/24 14:30 08/22/24 15:00 Temperature Pulse Rate 62 62 Respiratory Rate Blood Pressure 124/68 Pulse Oximetry 100 99 Oxygen Delivery Method 08/22/24 15:00 08/22/24 15:30 08/22/24 15:30 Temperature Pulse Rate 62 Respiratory Rate Blood Pressure 115/64 115/60 Pulse Oximetry 98 Oxygen Delivery Method 08/22/24 16:00 08/22/24 16:00 08/22/24 16:30 Temperature Pulse Rate 60 60 Respiratory Rate Blood Pressure 117/64 Pulse Oximetry 99 99 Oxygen Delivery Method 08/22/24 16:30 08/22/24 17:26 08/22/24 17:27 Temperature Pulse Rate 81 Respiratory Rate Blood Pressure 115/64 130/76 Pulse Oximetry 98 Oxygen Delivery Method 08/22/24 17:27 08/22/24 17:30 08/22/24 17:30 Temperature Pulse Rate 63 55 L Respiratory Rate Blood Pressure 128/73 Pulse Oximetry 98 98 Oxygen Delivery Method 08/22/24 18:00 08/22/24 18:00 08/22/24 18:09 Temperature Pulse Rate 95 H 72 Respiratory Rate Blood Pressure 135/61 Pulse Oximetry 98 96 Oxygen Delivery Method 08/22/24 18:09 08/22/24 18:30 08/22/24 19:00 Temperature Pulse Rate 71 85 Respiratory Rate Blood Pressure 134/74 Pulse Oximetry 100 100 Oxygen Delivery Method Oxygen Delivery Method Room Air Objective Labs 08/22/24 13:27 08/22/24 13:27 Labs: Laboratory Results - last 24 hr 08/22/24 08/22/24 13:27 18:05 WBC 9.6 RBC 5.21 Hgb 15.4 Hct 44.0 MCV 84.5 MCH 29.5 MCHC 34.9 RDW 12.6 Plt Count 396 Neut % (Auto) 83.1 H Lymph % (Auto) 8.1 L [place] % (Auto) 8.4 Eos % (Auto) 0.1 L Baso % (Auto) 0.3 Neut # (Auto) 8000 H Lymph # (Auto) 800 L [place] # (Auto) 800 Eos # (Auto) 0 Baso # (Auto) 0 Sodium 138 Potassium 3.2 L Chloride 87 L Carbon Dioxide 32 BUN 39 H Creatinine 1.90 H Estimated GFR 51 L BUN/Creatinine Ratio 20.5 Glucose 148 H Calcium 10.5 H Total Bilirubin 1.5 H AST 50 ALT 47 Alkaline Phosphatase 73 Total Protein 10.8 H Albumin 5.9 H Globulin 4.9 H Albumin/Globulin Ratio 1.2 Lipase 41 U Opiates 300ng/mL cut Negative Ur Oxycodone Screen Negative Urine Methadone Screen Negative Ur Barbiturates Screen Negative U Tricyclic Antidepress Negative Ur Phencyclidine Scrn Negative Ur Amphetamines Screen Negative U Methamphetamines Scrn Negative Ur MDMA Scrn (Ecstasy) Negative U Benzodiazepines Scrn Negative Urine Cocaine Screen Positive H U Marijuana (THC) Screen Positive H Urine pH Normal Urine Specific [place] Normal Ur Creatinine Normal Assessment & Plan Time-Based Coding :: [TOTAL MINUTES] spent with patient and on the chart (including review of chart, obtaining history, exam, reviewing outside data, placing orders, documenting exam and treatment plan, and counseling patient) on [DATE].
[2024-08-22] MEDS: PROMETHAZINE 25 MG TABLET PO (19:40)
[2024-08-22] MEDS: LORazepam 2 MG/ML INJ 1 MG IV (19:40)
[2024-08-22] MEDS: KCL 20 MEQ IN NS 1,000 ML 125 MEQ IV (21:11)
--- NOTE | 2024-08-22 22:18 | PC.NURSE ---
Patient falling asleep between answering admission questions. Patient oriented to room and call light. Bed alarm placed.
[2024-08-23 04:49] VITALS: BP 122/69; PULSE 60; RESP 18; TEMP 36.6; O2SAT 99
[2024-08-23] MEDS: KCL 20 MEQ IN NS 1,000 ML 125 MEQ IV (05:02)
[2024-08-23 05:23] LABS: BUN Creatinine Ratio 24.5 (6-22); Blood Urea Nitrogen 25 mg/dL (9-20); Carbon Dioxide 30 mmol/L (22-32); Chloride 99 mmol/L (98-107); Estimated Glomerular Filt Rate > 60 mL/min (>60); Glucose 97 mg/dL (70-100); HEMOLYSIS < 15 (0-50); Potassium 3.4 mmol/L (3.4-5.1); Sodium 137 mmol/L (137-145)
--- NOTE | 2024-08-23 10:38 | P.DS_ITS ---
History of Present Illness History of Present Illness Date Patient Seen: 08/23/24 Time Patient Seen: 09:00 Chief complaint: Hyperemesis dehydration KERRY Narrative: 23-year-old male with a history of hyperemesis with cannabis use was using cannabis and cocaine and developed uncontrollable retching unfortunately was unable to get this to stop came to the emergency room for evaluation. Weatherization Installer reports that ?antipsychotics work best for his nausea and vomiting? the patient himself is retching too much to answer questions Patient has had similar experiences in the past with severe EKRRY and with elevation of creatinine above 4 from severe episodes In the emergency room this time urine drug screen is positive for cocaine and marijuana sodium 138 potassium 3.2 chloride 87 BUN 39 creatinine 1.[address] abdomen pelvis is unremarkable Patient was referred for admission for hyperemesis and acute kidney injury Discharge Providers Provider Date of admission: 08/22/24 18:33 Discharge Date: 08/23/24 Consults: 08/22/24 21:22 Consult to [facility] - Exceptional Student Education Teacher Routine Comment: Exceptional Student Education Teacher Consult needed for:: Has no money Comment: worries about housing and running out of money Discharge provider: Manuel Rivas MD Summary Hospital Course Discharge Diagnosis: Acute kidney injury secondary to volume depletion from intractable retching nausea and vomiting following cannabis and cocaine use. Hospital Course: The patient was administered vigorous IV hydration and repletion of electrolytes and potassium, antiemetics with Zofran and Phenergan and as needed lorazepam IV, and felt significantly better by morning with creatinine normalized from 1.9mg/dL to 1.02mgd/dL, tolerating a clear liquid diet and interested in discharge home. No other issues arose. Cannabis and cocaine cessation was advised and resources offered to the patient, who declined stating that he was able to manage this himself. Status at Discharge Cognitive/behavioral status at discharge: oriented Functional status at discharge: independent ambulation Time Spent with Patient Time spent: Less than 30 minutes Exam Vital Signs (past 8 hours): - 08/23/24 04:49 Temperature 97.9 F Pulse Rate 60 Respiratory Rate 18 Blood Pressure 122/69 Pulse Oximetry 99 Oxygen Delivery Method Room Air Oxygen Flow Rate 0 Narrative Exam Narrative: Young male eating a clear liquid diet, appears fatiged, in no apparent distress Heart and lungs clear abdomen nontender extremities no edema Moves all extremities Objective Imaging CT scan - abdomen: Radiologist's impression: PROCEDURE: CT ABDOMEN PELVIS W CON INDICATIONS: abd pain, N/V TECHNIQUE: After the administration of intravenous contrast, axial sections acquired from the lung bases to the pubic symphysis. Coronal and sagittal reformats were performed. For radiation dose reduction, the following was used: automated exposure control, adjustment of mA and/or kV according to patient size. COMPARISON: None. FINDINGS: Image quality: Diagnostic. Lower Chest: No significant findings. ABDOMEN: Liver: No solid mass. Gallbladder: No radiopaque gallstones or wall thickening. Biliary ducts: No biliary dilation. Pancreas: No ductal dilation. Spleen: Size is within normal limits. Adrenal Glands: No adrenal nodules. Kidneys and Ureters: No hydronephrosis. No solid mass. No complex renal cystic lesion which requires follow up. Stomach and Bowel: Normal colonic caliber, without significant wall thickening. Probable partial visualization of a gas-filled normal appendix. Peritoneum: No abnormal intraperitoneal fluid. No free air. Ventral Wall: No significant ventral hernia. Abdominal Nodes: No retroperitoneal or mesenteric adenopathy by size criteria. Vessels: Aorta and inferior vena cava are normal in size. PELVIS: Pelvic Organs: Unremarkable. Bladder: No bladder wall thickening, accounting for underdistention. Pelvic Nodes: No enlarged lymph nodes. Miscellaneous: No inguinal hernias are seen. Bones: No aggressive osseous abnormality. IMPRESSION: No acute abdominal process noted. Labs 08/22/24 13:27 08/23/24 04:39 Labs: Laboratory Results - last 24 hr 08/22/24 08/22/24 08/23/24 13:27 18:05 04:39 WBC 9.6 RBC 5.21 Hgb 15.4 Hct 44.0 MCV 84.5 MCH 29.5 MCHC 34.9 RDW 12.6 Plt Count 396 Neut % (Auto) 83.1 H Lymph % (Auto) 8.1 L Dyer % (Auto) 8.4 Eos % (Auto) 0.1 L Baso % (Auto) 0.3 Neut # (Auto) 8000 H Lymph # (Auto) 800 L Dyer # (Auto) 800 Eos # (Auto) 0 Baso # (Auto) 0 Sodium 138 137 Potassium 3.2 L 3.4 Chloride 87 L 99 Carbon Dioxide 32 30 BUN 39 H 25 H Creatinine 1.90 H 1.02 Estimated GFR 51 L > 60 BUN/Creatinine Ratio 20.5 24.5 H Glucose 148 H 97 Calcium 10.5 H 9.0 Total Bilirubin 1.5 H AST 50 ALT 47 Alkaline Phosphatase 73 Total Protein 10.8 H Albumin 5.9 H Globulin 4.9 H Albumin/Globulin Ratio 1.2 Lipase 41 U Opiates 300ng/mL cut Negative Ur Oxycodone Screen Negative Urine Methadone Screen Negative Ur Barbiturates Screen Negative U Tricyclic Antidepress Negative Ur Phencyclidine Scrn Negative Ur Amphetamines Screen Negative U Methamphetamines Scrn Negative Ur MDMA Scrn (Ecstasy) Negative U Benzodiazepines Scrn Negative Urine Cocaine Screen Positive H U Marijuana (THC) Screen Positive H Urine pH Normal Urine Specific [place] Normal Ur Creatinine Normal PFSH Medical History Acid reflux Social History household members: family Smoking Status: Current every day smoker Discharge Plan Discharge Plan Patient Disposition: Home Discharge orders & Medications Prescriptions: Continued ondansetron 4 mg tablet,disintegrating 4 mg PO Q8H PRN (Reason: nausea and vomiting) Qty: 30 0RF Visit Report/Discharge Packet Instructions: DI for Heart Failure, DI for Prescription Opioid Use Stand Alone Forms: Patient Portal/API Quality MIPS - Admit I confirm the patient?s Advance Care Plan is present, Code status is documented, Surrogate decision maker is in patient?s record [If Yes, STOP here]: Yes MIPS - Meds 'Current medications' to include all prescriptions, [id number] products, herbals, cannabis/cannabidiol products, and vitamin/mineral/dietary (nutritional) supplements. I have utilized all available resources to obtain, update, or review the patient?s current medications. [If Yes, STOP here]: Yes MIPS - DC The patient has a history of heart transplant or Left Ventricular Assist Device (LVAD). If yes, STOP here.: No The patient has current or prior documentation of left ventricular ejection fraction (LVEF) less than or equal to 40%, or moderate or severely depressed left ventricular systolic function.: No A. The patient was prescribed or already taking an Angiotensin-Converting Enzyme (JOY) Inhibitor, or Angiotensin Receptor Adriano (ARB).: No B. The patient was prescribed or already taking a beta-adriano. [If Yes to Both A & B, STOP here]: No Patient not prescribed/taking JOY or ARB, no reason given.: No Patient not prescribed/taking beta-adriano, no reason given.: No PROFEE Charge Codes Discharge inpatient/observation: [id number]
--- NOTE | 2024-08-23 11:16 | CM.DANOTE ---
Patient is a 23 yo male who was admitted on 08/22/24 for Hyperemesis from Cannabis and Dehydration/KERRY. Pt has [facility] for insurance and his PCP he thinks is Dr. Roberts at the clinic in [place] near [facility]. EMR was reviewed. Per MD, pt with UDS+ for cannabis and cocaine and has a hx of cyclical vomiting and admitted for intractable n/v and given fluids. Pt's labs now normal and medically stable to discharge home today and discussed pt's drug use and medical impacts. SW met bedside with pt and explained role and pt confirms he lives in [place] with his Aunt and is independent at baseline and does not use DME and drives but does not have his own vehicle. 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 SW inquired about SNIPPER consult for housing and money insecurities and pt states he can still stay with his Aunt but has begun looking into apartments with a couple friends as he feels he is nearing the end of her hospitality of allowing him to stay with her. Pt has adequate food and basic needs met and has been working more and is not currently getting any sykes or food benefits from Medicaid and does not feel he needs to explore this option at this time. Pt states his PCP is Armando at the clinic near [facility] and also near his prior mental health counselor but pt states he went to his counselor while he was in high school but not currently established and does not feel this is a need. SW inquired about pt's drug use and pt denies any need for PETTY resources or tx and pt denies any needs right now although SW discussed he has multiple ED visits over the past 2 years for similar stomach/vomiting issues. Pt confirms he is agreeable to d/c home today and has his Aunt to transport him at discharge and denies any further needs and preference is home. ALLY Curry Discharge Planning/Care Management CM Discharge Assessment Start: 08/23/24 11:12 Freq: Status: Active Protocol: Document 08/23/24 11:12 BF (Rec: 08/23/24 11:15 BF [id number]) Discharge Planning Assessment Assigned Plastic Press Molder ALLY Jiang DPOA/Assigned Designee Name none, informally mother [place] Contact Information [phone] Advance Directives? No Advance Directives on File No History Provided By Patient,Medical Record Has Patient been admitted in last 30 No days? Prior Living Arrangements House Household Members family Comment Lives with his Aunt in [place] Type of transporation used prior to Drives own vehicle admit Independent with ADL's Yes Is patient alert and oriented? Yes Caregiver for Another No Barriers to Discharge No Discharge Plan Home Transportation Arrangement Aunt plans to provide transport at d/c Referrals Initiated None needed Additional Comment Pt declined PETTY resources or other community resources Whiteboard Updated in Patient Room with Yes name and ext. # of Plastic Press Molder Review Status In Process Please Provide Date Initial DC 08/23/24 Assessment Was Performed Next Review Type Continued Stay Review
--- NOTE | 2024-08-23 12:22 | PC.NURSE ---
Discharge: Pt A&O x4, and stable, left floor via W/C with all belongings, pt educated. Pt to home with family in private vehicle.
--- NOTE | 2024-10-13 11:48 | PC.NURSE ---
late entry per RN the fluid bolus of NS was completed at 2100
== END 2024-08-23 12:10 | disposition home or self-care (01) | DRG 422 ==
LOC: ED 18:34 → AC 19:14
PROVIDERS: Admitting Provider Internal Medicine; Emergency Provider Emergency Medicine; Referring Provider Emergency Medicine; Visit Provider Internal Medicine
DX: E86.0 Dehydration (principal); N17.9 Acute kidney failure, unspecified; R11.2 Nausea with vomiting, unspecified; F12.90 Cannabis use, unspecified, uncomplicated; F14.90 Cocaine use, unspecified, uncomplicated; F17.200 Nicotine dependence, unspecified, uncomplicated
CPT/HCPCS: 36415; 74177; 80048; 80053; 80305; 81003; 83690; 85025; 96361; 96365; 96366; 96375; 96376; 99284; 99291; G0378; J2060; J2405; J2470; Q9967

== ENCOUNTER 2025-02-28 02:57 | Emergency (ER) | payer MEDICAID, SELFPAY ==
[2024-08-22 21:11] VITALS: BMI 21.5
[2025-02-28 03:06] VITALS: PULSE 67; O2SAT 99
[2025-02-28 03:07] VITALS: BP 127/81; PULSE 66; O2SAT 100
[2025-02-28 03:10] VITALS: BP 127/81; PULSE 67; RESP 18; TEMP 36.7; O2SAT 100; BMI 25.1
--- NOTE | 2025-02-28 03:12 | ED.NAVMDI ---
HPI - Nausea/Vomiting/Diarrhea General Chief complaint: Nausea/Vomiting/Diarrhea Stated complaint: vomiting x2 days Time Seen by Provider: 02/28/25 03:12 History of Present Illness HPI Narrative: 24-year-old male with a history of recurrent cyclic vomiting comes into the ED for nausea and vomiting. States that this has been ongoing persistent for the past 2 days. States it started after he was recovering from a ?hangover states that this has happened in the past states that he was told it might be secondary to hyperemesis cannabinoid, states he has not smoked in the past 2 days secondary to the symptoms. He states that he was just in the emergency room at [facility], he states that they gave him 2 bags of fluids and some medication however he states that he is still nauseous. He states he does not remember what other things they did for him. However he states that given the fact that he is still nauseous decided come into the ED. He denies any other symptoms such as headache visual disturbances chest pain shortness breath fever chills or any other GI/ symptoms at this time. Related Data Previous Rx's ?Medication ?Instructions ?Recorded ondansetron 4 mg disintegrating 4 mg PO Q8H PRN nausea and 12/27/23 tablet vomiting #30 tabs Allergies Allergy/AdvReac Type Severity Reaction Status Date / Time No Known Drug Allergies Allergy Verified 02/28/25 03:10 Review of Systems Review of Systems Narrative: General: Denies fever, chills, weight loss HEENT: Denies headache, eye drainage, eye irritation, head trauma, sore throat, voice change Cardiovascular: Denies any chest pain, palpitations, tachycardia Respiratory: Denies any shortness of breath, cough, wheeze, stridor GI/: Positive nausea and vomiting Denies any abdominal pain, diarrhea, bright red blood per rectum, melanotic stools, urinary frequency, urinary retention, dysuria, hematuria MSK: Denies any joint pain, muscle pains, swelling Skin: Denies any rashes, lesions, discoloration Neuro: Denies any headache, lightheadedness, dizziness, fainting, weakness Psych: Denies SI/HI Patient History Medical History Acid reflux Social History household members: family Smoking Status: Current some day smoker tobacco type: vaping alcohol intake frequency: a few times a month Exam Narrative Exam Narrative: General: Cooperative, well-developed, not in acute distress HEENT: Normocephalic, atraumatic, PERRLA, normal sclera, eyelids normal Neck: Active full range of motion, atraumatic Chest: Normal to inspection, negative crepitus, no overlying erythema ecchymosis Respiratory: Normal respiratory effort, not in acute respiratory distress, clear to auscultation bilaterally negative cough, wheeze, tachypnea, rhonchi, rales Cardiology: Regular rate rhythm negative gallop, murmur, rubs GI/: No tenderness to palpation, soft, non rigid, normal to inspection, exam deferred MSK: Full active range of motion in all 4 extremities, atraumatic, no tenderness to palpation of any bony prominences Skin: No rashes or lesions noted Neuro: Alert awake oriented x3, moves all 4 extremities spontaneously, cranial nerves intact, able to answer all questions appropriately follows commands appropriately Psych: Cooperative, negative suicidal or homicidal ideations Initial Vital Signs Initial Vital Signs: Vital Signs Temperature 98.0 F 02/28/25 03:10 Pulse Rate 67 02/28/25 03:10 Respiratory Rate 18 02/28/25 03:10 Blood Pressure 127/81 02/28/25 03:10 Pulse Oximetry 100 02/28/25 03:10 Oxygen Delivery Method Room Air 02/28/25 03:10 Course Orders Ordered: ED Orders 02/28/25 03:18 EKG-12 Lead Stat 02/28/25 03:27 CBC Auto Diff [Complete Blood Count AUTO DIFF] Stat CMP [Comprehensive Metabolic Panel] Stat Lipase Stat MAG [Magnesium] Stat Discontinued Medications Haloperidol (Haloperidol 5 Mg/Ml Vial) 5 mg IV NOW ONE Stop: 02/28/25 03:26 Last Admin: 02/28/25 03:43 Dose: 5 mg Documented By: LISSETTE Potassium Chloride (Potassium Chloride 20 Meq Tab) 40 meq PO NOW ONE Stop: 02/28/25 03:56 Last Admin: 02/28/25 04:39 Dose: 40 meq Documented By: LISSETTE Vital Signs Vital signs: Vital Signs - 8 hr 02/28/25 03:10 Temperature 98.0 F Pulse Rate 67 Respiratory Rate 18 Blood Pressure 127/81 Pulse Oximetry 100 Oxygen Delivery Method Room Air MDM - Nausea/Vomiting/Diarrhea Lab Data 02/28/25 03:27 02/28/25 03:27 Labs: Lab Results 02/28/25 Range/Units 03:27 WBC 11.9 H (4.5-11.0) X10^3/uL RBC 5.10 (4.5-5.9) X10^6/uL Hgb 15.2 (13.5-17.5) g/dL Hct 43.7 (41-53) % MCV 85.8 (80-100) fL MCH 29.8 (26-34) PG MCHC 34.8 (30-36) % RDW 12.8 (11.6-14.8) % Plt Count 334 (150-400) X10^3/uL Neut % (Auto) 83.5 H (50-75) % Lymph % (Auto) 7.2 L (25-40) % [facility] % (Auto) 8.7 (3-14) % Eos % (Auto) 0.0 L (2-4) % Baso % (Auto) 0.6 (0-2) % Neut # (Auto) 9900 H (8714-8023) /uL Lymph # (Auto) 900 L (5867-3981) /uL [facility] # (Auto) 1000 H (0-900) /uL Eos # (Auto) 0 (0-450) /uL Baso # (Auto) 100 (0-100) /uL Sodium 140 (137-145) mmol/L Potassium 2.9 L (3.4-5.1) mmol/L Chloride 96 L (98-107) mmol/L Carbon Dioxide 29 (22-32) mmol/L BUN 21 H (9-20) mg/dL Creatinine 0.97 (0.66-1.25) mg/dL Estimated GFR > 60 (>60) mL/min BUN/Creatinine Ratio 21.6 (6-22) Glucose 129 H (70-99) mg/dL Calcium 10.0 (8.4-10.2) mg/dL Magnesium 2.3 (1.6-2.3) mg/dL Total Bilirubin 1.4 H (0.2-1.3) mg/dL AST 40 (17-59) IU/L ALT 33 (<50) IU/L Alkaline Phosphatase 73 (38-126) U/L Total Protein 9.4 H (6.3-8.2) g/dL Albumin 5.6 H (3.5-5.0) g/dL Globulin 3.8 (1.7-4.1) g/dL Albumin/Globulin Ratio 1.5 (1.0-2.8) Lipase 27 (23-300) U/L MDM Narrative Medical decision making narrative: 24-year-old male with a history of hyperemesis cannabinoid comes into the ED from home for evaluation of nausea and vomiting ongoing persistent for the past 2 days. He was just seen and discharged from the emergency department at [facility] prior to arrival. States that at that time he received 2 bags of fluid and 2 doses of some ?medication states that he is not really sure if he got any imaging however he states that due to persistent symptoms presents to the emergency department here. On my exam patient is well-appearing nontoxic no abdominal tenderness to palpation. Patient had repeat lab work EKG and symptomatic treatment patient WBC at 11. Potassium 2.9, I did offer patient additional imaging such as chest x-ray and CT scan of his abdomen, however he states that he is not having any abdominal pain chest pain shortness breath states that he only came here for medication for his nausea. He states that he does not want any imaging performed and just wants ?medication to help with everything. Reviewed patient's visit from outside hospital, patient received 8 mg of p.o. Zofran, 10 mg of p.o. omeprazole, lab work was performed was noted that he did have a leukocytosis of 15.6, sodium 140, potassium 3.5, chloride 96, creatinine 1.1, GFR 84, patient had urinalysis without any signs of acute urinary tract infection, patient did pass p.o. challenge, tolerated pudding and crackers. Was discharged home with Zofran and pantoprazole 0453: Discharge Plan Departure Patient Disposition: Home Clinical Impression: Nausea and vomiting, Acute hypokalemia Instructions: DI for Vomiting -- Adult Activity Restrictions/Additional Instructions: For the next 24 hours please only have clear liquids, please take the antinausea medication as directed for the next 24 hours even if you are not nauseous to prevent recurrence of your symptoms. Please follow up with the primary care doctor Please read the discharge instructions sheet carefully and bring all papers to all doctor follow-up visits, as it may contain information that your doctor may want to see. Disease processes change and evolve, if your symptoms worsen or if you develop any new symptoms that are concerning to you please return for evaluation. Your evaluation today does not show any evidence of any life-threatening/serious illnesses requiring admission to the hospital or surgery. Please follow-up with your doctor for re-evaluation in approximately 1 day. Seek immediate medical attention for any worrisome symptoms. *If you do not have a primary care provider please contact the [facility] Resource line at [phone]. They will ask some questions about your medical history and help get you set up with a doctor in the community. Prescriptions: No Action ondansetron 4 mg tablet,disintegrating 4 mg PO Q8H PRN (Reason: nausea and vomiting) Qty: 30 0RF Stand Alone Forms: Patient Portal/API
--- NOTE | 2025-02-28 03:18 | EKG_ITS ---
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
[2025-02-28 03:30] VITALS: BP 137/71; PULSE 67; O2SAT 100
[2025-02-28 03:34] LABS: Add Manual Diff / Slide Review NO; Hematocrit 43.7 % (41-53); Hemoglobin 15.2 g/dL (13.5-17.5); Lymphocytes Absolute Auto 900 /uL (1100-4500); Mean Corpuscular HGB Conc 34.8 % (30-36); Mean Corpuscular Hemoglobin 29.8 PG (26-34); Mean Corpuscular Volume 85.8 fL (80-100); Platelet Count 334 X10^3/uL (150-400)
[2025-02-28] MEDS: HALOPERIDOL 5 MG/ML VIAL IV (03:43)
[2025-02-28 03:46] LABS: Alanine Aminotransferase 33 IU/L (<50); Albumin 5.6 g/dL (3.5-5.0); Albumin Globulin Ratio 1.5 (1.0-2.8); Alkaline Phosphatase 73 U/L (38-126); Blood Urea Nitrogen 21 mg/dL (9-20); Calcium 10.0 mg/dL (8.4-10.2); Carbon Dioxide 29 mmol/L (22-32); Chloride 96 mmol/L (98-107); Estimated Glomerular Filt Rate > 60 mL/min (>60); Globulin 3.8 g/dL (1.7-4.1); Glucose 129 mg/dL (70-99); HEMOLYSIS < 15 (0-50); Lipase 27 U/L (23-300); Magnesium 2.3 mg/dL (1.6-2.3); Potassium 2.9 mmol/L (3.4-5.1); Sodium 140 mmol/L (137-145); Total Protein 9.4 g/dL (6.3-8.2)
[2025-02-28 04:00] VITALS: BP 99/52; PULSE 62; O2SAT 95
[2025-02-28 04:30] VITALS: BP 95/54; PULSE 61; RESP 16; O2SAT 95
[2025-02-28] MEDS: POTASSIUM CHLORIDE 20 MEQ TAB 40 MEQ PO (04:39)
[2025-02-28] MEDS: ONDANSETRON 4 MG ODT PREPACK 1 BOTTLE MISC (04:57)
== END 2025-02-28 05:00 | disposition home or self-care (01) ==
PROVIDERS: Emergency Provider Student in an Organized Health Care Education/Training Program
DX: R11.2 Nausea with vomiting, unspecified (principal); E87.6 Hypokalemia
CPT/HCPCS: 36415; 80053; 83690; 83735; 85025; 93005; 93010; 96374; 99284; J1630